=== PATIENT | male | born 1945 | race Caucasian/White ===

== ENCOUNTER 2019-03-03 16:44 | Emergency (ER) | payer MEDICARE, BC ==
[2019-03-03] MEDS ORDERED: cloNIDine 0.1 MG Tab PO ONE (17:20)
[2019-03-03 19:38] VITALS: BP 132/69
--- NOTE | 2019-03-05 19:58 | EDM.PDOC ---
Scribed by Nadine Diana [birth year]191935 for Kelli Stokes NP ED HPI GENERAL MEDICAL PROBLEM - General Chief Complaint: Wound Recheck Stated Complaint: NEEDS TO HAVE HIS NECK LOOKED AT Time Seen by Provider: 03/03/19 17:09 Source of Information: Reports: Patient, RN, RN Notes Reviewed History Limitations: Reports: No Limitations - History of Present Illness INITIAL COMMENTS - FREE TEXT/NARRATIVE: Patient presents to ER with complaint of swelling and warmth at incision site on left side of neck. Patient had endarterectomy yesterday at [facility]. Discharged this a.m. from [facility]. States he feels the lump and area is more warm than normal. Onset: Today Duration: Constant Location: Reports: Other (neck) Quality: Reports: Ache Severity: Mild Improves with: Reports: None Worsens with: Reports: None Associated Symptoms: Reports: No Other Symptoms - Related Data Allergies Allergy/AdvReac Type Severity Reaction Status Date / Time dexamethasone [From TobraDex] Allergy Itching Verified 03/03/19 16:56 hydrocodone Allergy Itching Verified 03/03/19 16:56 Iodinated Contrast- Oral and Allergy RASH/ITCHIN Verified 03/03/19 16:56 IV Dye G tobramycin [From TobraDex] Allergy Itching Verified 03/03/19 16:56 Home Meds: Home Meds Aspirin [Adult Low Dose Aspirin EC] 81 mg PO DAILY 03/23/14 [History] Esomeprazole [NexIUM] 40 mg PO DAILY 03/23/14 [History] Ezetimibe/Simvastatin [Vytorin 10-20 MG] 10 - 20 mg PO ASDIRECTED 03/23/14 [ History] Ibuprofen [Motrin] 600 mg PO Q6H PRN 03/23/14 [History] Multivitamin [Multi Vitamin Daily] 1 tab PO DAILY 03/23/14 [History] [place]-3 Fatty Acids [Fish Oil] 300 mg PO DAILY 03/23/14 [History] amLODIPine Besylate/Benazepril [Amlodipine-Benazepril 10-20 MG] 10 - 20 mg PO DAILY 03/23/14 [History] hydroCHLOROthiazide [Hydrochlorothiazide] 25 mg PO DAILY 03/23/14 [History] metFORMIN [Glucophage] 500 mg PO DAILY 06/30/16 [History] Glimepiride 4 mg PO DAILY 02/24/19 [History] Vitamin E 180 unit PO DAILY 02/24/19 [History] metFORMIN [Glucophage XR] 1,000 mg PO DAILY 02/24/19 [History] Past Medical History HEENT History: Reports: None Cardiovascular History: Reports: High Cholesterol Respiratory History: Reports: None Musculoskeletal History: Reports: None Neurological History: Reports: None Psychiatric History: Reports: None Endocrine/Metabolic History: Reports: Diabetes, Type II Hematologic History: Reports: None Immunologic History: Reports: None Oncologic (Cancer) History: Reports: None Dermatologic History: Reports: None - Infectious Disease History Infectious Disease History: Reports: None - Past Surgical History Head Surgeries/Procedures: Reports: None GI Surgical History: Reports: Cholecystectomy, Hernia, Abdominal Male Surgical History: Reports: Prostatectomy Social & Family History - Family History Family Medical History: Noncontributory - Tobacco Use Smoking Status *Q: Never Smoker Second Hand Smoke Exposure: No - Caffeine Use Caffeine Use: Reports: Coffee - Recreational Drug Use Recreational Drug Use: No - Living Situation & Occupation Living situation: Reports: Occupation: Retired ED ROS GENERAL - Review of Systems Review Of Systems: ROS reveals no pertinent complaints other than HPI. ED EXAM, SKIN/RASH Exam: See Below Exam Limited By: No Limitations General Appearance: Alert, WD/WN, No Apparent Distress Eye Exam: Bilateral Eye: EOMI, Normal Inspection, PERRL Ears: Normal External Exam, Normal Canal, Hearing Grossly Normal, Normal TMs Nose: Normal Inspection, Normal Mucosa, No Blood Throat/Mouth: Normal Inspection, Normal Lips, Normal Teeth, Normal Gums, Normal Oropharynx, Normal Voice, No Airway Compromise Head: Atraumatic, Normocephalic Neck: Other (incision on left side) Respiratory/Chest: No Respiratory Distress, Lungs Clear, Normal Breath Sounds, No Accessory Muscle Use, Chest Non-Tender Cardiovascular: Normal Peripheral Pulses, Regular Rate, Rhythm, No Edema, No Gallop, No JVD, No Murmur, No Rub GI/Abdominal: Normal Bowel Sounds, Soft, Non-Tender, No Organomegaly, No Distention, No Abnormal Bruit, No Mass (Male) Exam: Deferred Rectal (Males) Exam: Deferred Back Exam: Normal Inspection, Full Range of Motion, NT Extremities: Normal Inspection, Normal Range of Motion, Non-Tender, No Pedal Edema, Normal Capillary Refill Neurological: Alert, Oriented, CN II-XII Intact, Normal Cognition, Normal Gait, Normal Reflexes, No Motor/Sensory Deficits Psychiatric: Normal Affect, Normal Mood Skin: Other (incision on left side of neck) Lymphatic: No Adenopathy Course - Vital Signs Last Recorded V/S: Last Vital Signs Temp 97.3 F 03/03/19 16:59 Pulse 66 03/03/19 19:30 Resp 18 03/03/19 19:30 BP 132/69 03/03/19 19:30 Pulse Ox 95 03/03/19 19:30 - Orders/Labs/Meds Meds: Medications Discontinued Medications Generic Name Dose Route Start Last Admin Trade Name Freq PRN Reason Stop Dose Admin Clonidine HCl 0.1 mg 03/03/19 17:20 03/03/19 17:28 Catapres PO 03/03/19 17:21 0.1 mg ONETIME ONE Administration - Re-Assessments/Exams Free Text/Narrative Re-Assessment/Exam: Discussed patient case with Dr. Casanova who states he would not recommend abx at this time. He states he would like the patient's blood pressure under 140 systolically before going home, or observation admission may be necessary to get blood pressure under control. If discharged, Dr. Casanova would like the patient to call his office tomorrow to check in. Departure - Departure Time of Disposition: 19:36 Disposition: Home, Self-Care 01 Condition: Fair Clinical Impression: Hematoma Hypertension Qualifiers: Hypertension type: unspecified Qualified Code(s): I10 - Essential (primary) hypertension - Discharge Information *PRESCRIPTION DRUG MONITORING PROGRAM REVIEWED*: No *COPY OF PRESCRIPTION DRUG MONITORING REPORT IN PATIENT TYREE: No Instructions: Wound Infection, [id number], Managing Your Hypertension Referrals: Fide Delgado MD [Primary Care Provider] - Forms: ED Department Discharge Additional Instructions: Monitor your blood pressure Call Dr. Casanova's office tomorrow morning to check in Return to the ER with any further problems I have read and agree with the documentation that has been completed regarding this visit. By signing this record, I attest that the documentation was completed in my physical presence and is an accurate record of the encounter.
== END 2019-03-03 20:15 | disposition home or self-care (01) ==
LOC: DL.ED 16:44
DX: I97.621 Postprocedural hematoma of a circulatory system organ or structure following other procedure (principal); I10 Essential (primary) hypertension; E78.00 Pure hypercholesterolemia, unspecified; E11.9 Type 2 diabetes mellitus without complications; Z79.84 Long term (current) use of oral hypoglycemic drugs; Z79.899 Other long term (current) drug therapy; Z88.8 Allergy status to other drugs, medicaments and biological substances
CPT/HCPCS: 99283; A9270

== ENCOUNTER 2019-06-10 08:46 | Day surgery (SDC) | payer MEDICARE, BC ==
[2019-06-10] MEDS ORDERED: Sodium Chloride 0.9% 10 ML Syringe IV ONE (08:47)
[2019-06-10] MEDS ORDERED: Midazolam 1 MG/ML 2 ML SDV IV ONE (08:47)
[2019-06-10] MEDS ORDERED: Dexamethasone 4 MG/ML SDV IV ONE (08:47)
[2019-06-10] MEDS ORDERED: Phenylephrine 10% Ophth Soln 5 ML Bot EYERT ONE (09:00)
[2019-06-10] MEDS ORDERED: Povidone-Iodine 5% Sterile Ophth Soln 30 ML Bottle EYERT ONE ×2 (09:00→10:09)
[2019-06-10] MEDS ORDERED: Phenylephrine 10% Ophth Soln 5 ML Bot EYERT PRN (09:00)
[2019-06-10] MEDS ORDERED: Ondansetron 4 MG/2 ML SDV IVPUSH PRN (09:00)
[2019-06-10] MEDS ORDERED: Proparacaine 0.5% Ophth Soln 15 ML Bottle EYERT ONE (09:00)
[2019-06-10] MEDS ORDERED: Timolol Maleate 0.5% Ophth Soln 5 ML Bottle EYERT ONE (09:00)
[2019-06-10] MEDS ORDERED: Sodium Chloride 0.9% 10 ML Syringe FLUSH PRN (09:00)
[2019-06-10] MEDS ORDERED: Moxifloxacin 0.5% Ophth Soln 3 ML Bottle EYERT ONE (09:00)
[2019-06-10] MEDS ORDERED: Acetaminophen 325 MG Tab PO PRN (09:00)
[2019-06-10] MEDS ORDERED: Cataract Ophth Solution EYERT ONE (09:00)
[2019-06-10] MEDS ORDERED: Lidocaine 1% 30 ML SDV ONE (10:09)
[2019-06-10] MEDS ORDERED: Diclofenac Sodium 0.1% Ophth Soln 5 ML Bottle EYERT ONE (10:10)
[2019-06-10] MEDS ORDERED: Tetracaine HCl/PF 0.5% 4 ML Bottle EYERT ONE (10:10)
[2019-06-10] MEDS ORDERED: Apraclonidine 0.5% Ophth Soln 5 ML Bot EYERT ONE (10:10)
[2019-06-10] MEDS ORDERED: Dexamethasone/Neomycin/Polymyxin B Ophth Oint 3.5 GM Tube EYERT ONE (10:11)
[2019-06-10] MEDS ORDERED: Balanced Salt Solution Ophth Irrig 500 ML Bottle IOCULAR ONE (10:11)
[2019-06-10] MEDS ORDERED: Chondroitin Sulfate/Hyaluronate Sodium Ophth Inj 0.75 ML Syringe EYERT ONE (10:12)
[2019-06-10] MEDS ORDERED: Vancomycin 500 MG SDV EYERT ONE (10:12)
[2019-06-10 11:05] VITALS: BP 122/77
--- NOTE | 2019-06-10 16:37 | OR ---
DATE: 06/10/2019 PREOPERATIVE DIAGNOSIS: Visually significant mixed cataract, right eye. POSTOPERATIVE DIAGNOSIS: Visually significant mixed cataract, right eye. PROCEDURE: Extracapsular cataract extraction with intraocular lens implant, right eye. ANESTHESIA: Topical/local MAC. COMPLICATIONS: None. INDICATION: Mr. Tidwell was seen in the clinic. He has complained of a progressive decrease in vision. His examination revealed visually significant cataract. He has difficulty driving at night. Also, he has a hard time with focusing and near tasks. I explained options, offered cataract surgery, and I explained risks preoperatively including, but not limited to infection, retinal detachment, loss of vision, and need for additional surgery amongst others. We discussed implant options. He has requested a monofocal implant. He understands that he may need glasses following surgery for some activities. OPERATIVE DESCRIPTION: After informed consent was obtained and the risks, benefits, and alternatives were explained, the patient was brought to the operative suite and topical anesthesia was administered. The patient was then prepped and draped in the sterile fashion and attention was placed on the right eye. A sterile lid speculum was placed into the right eye to allow operative exposure. A full-thickness paracentesis was made in the temporal portion of the operative eye. Preservative-free lidocaine 0.1 mL was injected into the anterior chamber followed by viscoelastic. A full-thickness corneal incision was then made into the anterior chamber. A bent needle cystotome was used to create a small rosario in the anterior capsule. The capsulorrhexis forceps was then used to create a 360-degree curvilinear capsulorrhexis. The nucleus was then removed using a phacoemulsification handpiece and the remaining cortical material was then removed with irrigation and aspiration handpiece. Following removal of the cortical material, the capsular bag was then inspected and noted to be free of any holes or tears. Viscoelastic was then injected into the capsular bag and the intraocular lens was inserted into the capsular bag. The viscoelastic material was then removed from both the anterior and posterior chambers and from behind the IOL. The lens and capsular bag were then reinspected. The IOL was well centered and the capsular bag intact. The wound and paracentesis sites were inspected and hydrated with balanced saline solution. Both were found to be self-sealing. The intraocular pressure was assessed digitally and found to be within normal range. A good red reflex was noted at the completion of the procedure. No complications occurred during the operation. At the completion of the procedure, Maxitrol, Voltaren, and Iopidine drops were placed into the operative eye. A sterile eye shield was placed over the operative eye and the patient was transported to the postoperative recovery area having tolerated the procedure well. Postoperative instructions were given along with a postoperative appointment. The patient was advised to call with any questions or concerns. [facility] /[id number]
== END 2019-06-10 11:04 | disposition home or self-care (01) ==
LOC: DL.SDS 08:46
PROVIDERS: ATTEND Ophthalmology
DX: E11.36 Type 2 diabetes mellitus with diabetic cataract (principal); E78.5 Hyperlipidemia, unspecified; K21.9 Gastro-esophageal reflux disease without esophagitis; I10 Essential (primary) hypertension; I25.10 Atherosclerotic heart disease of native coronary artery without angina pectoris; E66.9 Obesity, unspecified; Z87.891 Personal history of nicotine dependence; Z68.36 Body mass index [BMI] 36.0-36.9, adult; Z91.041 Radiographic dye allergy status; Z88.1 Allergy status to other antibiotic agents; Z88.8 Allergy status to other drugs, medicaments and biological substances; Z79.84 Long term (current) use of oral hypoglycemic drugs; Z79.82 Long term (current) use of aspirin
CPT/HCPCS: 66984; A9270; J1100; J2001; J2250; J3370; V2632

== ENCOUNTER 2020-07-04 21:33 | Emergency (ER) | payer MEDICARE, BC ==
[2020-07-04 21:40] VITALS: BP 167/87; PULSE 72
--- NOTE | 2020-07-04 23:15 | EDM.PDOC ---
ED HPI GENERAL MEDICAL PROBLEM - General Chief Complaint: ENT Problem Stated Complaint: EAR WILL NOT STOP BLEEDING Time Seen by Provider: 07/04/20 21:40 Source of Information: Reports: Patient History Limitations: Reports: No Limitations - History of Present Illness INITIAL COMMENTS - FREE TEXT/NARRATIVE: ED with c/o bleeding to back of right ear. Lesion removed 10 days ago. Healing with out complication until tonight. Noted sitting in chair and area started to bleed. Has not noted any increased pain swelling or redness to area. no scheduled follow up. Was told 8-12 weeks before complete healing. Dressing to ear only for first couple of days. - Related Data Allergies Allergy/AdvReac Type Severity Reaction Status Date / Time Iodinated Contrast Media Allergy RASH/ITCHIN Verified 06/10/19 08:59 [Iodinated Contrast- Oral G and IV Dye] Home Meds: Home Meds Aspirin [Adult Low Dose Aspirin EC] 81 mg PO DAILY 03/23/14 [History] Esomeprazole [NexIUM] 40 mg PO DAILY 03/23/14 [History] Ezetimibe/Simvastatin [Vytorin 10-20 MG] 1 tab PO ASDIRECTED 03/23/14 [History] Ibuprofen [Motrin] 600 mg PO Q6H PRN 03/23/14 [History] Multivitamin [Multi Vitamin Daily] 1 tab PO DAILY 03/23/14 [History] [place]-3 Fatty Acids [Fish Oil] 300 mg PO DAILY 03/23/14 [History] amLODIPine Besylate/Benazepril [Amlodipine-Benazepril 10-20 MG] 10 mg PO DAILY 03/23/14 [History] hydroCHLOROthiazide [Hydrochlorothiazide] 25 mg PO DAILY 03/23/14 [History] metFORMIN [Glucophage] 500 mg PO DAILY 06/30/16 [History] Glimepiride 4 mg PO DAILY 02/24/19 [History] metFORMIN [Glucophage XR] 1,000 mg PO BEDTIME 02/24/19 [History] Cholecalciferol (Vitamin D3) [Vitamin D3] 1,000 units PO DAILY 05/29/19 [History] Cyanocobalamin (Vitamin B-12) [B-12] 1,000 mcg PO DAILY 05/29/19 [History] Past Medical History - Past Health History Medical/Surgical History: Denies Medical/Surgical History HEENT History: Reports: Cataract Cardiovascular History: Reports: Angina, CAD, High Cholesterol, Hypertension Respiratory History: Reports: None Gastrointestinal History: Reports: Diverticulosis, GERD, Hemorrhoids, Other (See Below) Other Gastrointestinal History: HX OF LIVER ENZYMES. 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 INCISIONAL HERNIA REPAIR - DAVINCI ASSISTED REPAIR Male Surgical History: Reports: Prostatectomy, Other (See Below) Other Male Surgeries/Procedures: PROSTRATE ULTRASOUND/BIOPSY Oncologic Surgical History: Reports: Biopsy of Breast Social & Family History - Family History Family Medical History: Noncontributory - Tobacco Use Smoking Status *Q: Never Smoker Second Hand Smoke Exposure: No - Caffeine Use Caffeine Use: Reports: Coffee Other Caffeine Use: 3 cups daily - Recreational Drug Use Recreational Drug Use: No - Living Situation & Occupation Living situation: Reports: Occupation: Retired ED ROS ENT - Review of Systems Review Of Systems: Comprehensive ROS is negative, except as noted in HPI. ED EXAM, ENT - Physical Exam Exam: See Below Exam Limited By: No Limitations General Appearance: Alert, No Apparent Distress Eye Exam: Bilateral Eye: EOMI Ears: Hearing Grossly Normal, Other ([id number] lesion posterior right mid ear. No redness or swelling no sign of infection. No active bleeding. ) Nose: Normal Inspection Head: Atraumatic, Normocephalic Respiratory/Chest: No Respiratory Distress Neurological: Alert, Oriented, Normal Cognition Psychiatric: Normal Affect, Normal Mood Skin: Warm, Dry Course - Vital Signs Last Recorded V/S: Last Vital Signs Temp 97.1 F 07/04/20 21:36 Pulse 72 07/04/20 21:36 Resp 18 07/04/20 21:36 BP 167/87 H 07/04/20 21:36 Pulse Ox 95 07/04/20 21:36 Departure - Departure Time of Disposition: 22:57 Disposition: Home, Self-Care 01 Condition: Good Clinical Impression: Skin lesion - Discharge Information *PRESCRIPTION DRUG MONITORING PROGRAM REVIEWED*: No *COPY OF PRESCRIPTION DRUG MONITORING REPORT IN PATIENT TYREE: No Instructions: Excision of Skin Lesions Referrals: Fide Delgado MD [Primary Care Provider] - Forms: ED Department Discharge Additional Instructions: may remove dressing carefully tomorrow cover as needed clinic follow up this week with organization development consultant or Provider that removed lesion monitor for increased redness or swelling or area around lesion Sepsis Event Note (ED) - Evaluation Sepsis Screening Result: No Definite Risk - Focused Exam Vital Signs: Vital Signs Temp Pulse Resp BP Pulse Ox 07/04/20 21:36 97.1 F 72 18 167/87 H 95
== END 2020-07-04 23:20 | disposition home or self-care (01) ==
LOC: DL.ED 21:33
DX: L98.9 Disorder of the skin and subcutaneous tissue, unspecified (principal); E11.9 Type 2 diabetes mellitus without complications; K21.9 Gastro-esophageal reflux disease without esophagitis; I25.10 Atherosclerotic heart disease of native coronary artery without angina pectoris; E78.00 Pure hypercholesterolemia, unspecified; I10 Essential (primary) hypertension; E66.9 Obesity, unspecified; Z91.041 Radiographic dye allergy status; Z79.82 Long term (current) use of aspirin; Z79.84 Long term (current) use of oral hypoglycemic drugs; Z79.899 Other long term (current) drug therapy; Z68.26 Body mass index [BMI] 26.0-26.9, adult
CPT/HCPCS: 99282; 99283

== ENCOUNTER 2021-03-18 02:01 | Emergency (ER) | payer MEDICARE, BC ==
[2021-03-18 03:15] VITALS: BP 162/88; PULSE 94
[2021-03-18] MEDS ORDERED: HYDROmorphone 1 MG/ML Syringe IVPUSH ONE (03:27)
--- NOTE | 2021-03-18 05:19 | EDM.PDOC ---
ED HPI GENERAL MEDICAL PROBLEM - General Chief Complaint: Upper Extremity Injury/Pain Stated Complaint: LEFT SIDE OF RIGS HURTING, LEFT WRIST Time Seen by Provider: 03/18/21 03:50 Source of Information: Reports: Patient, Family (), RN, RN Notes Reviewed History Limitations: Reports: No Limitations - History of Present Illness INITIAL COMMENTS - FREE TEXT/NARRATIVE: Genaro is a 75 y/o male who presents to the ED via personal vehicle with for complaints of left anterolateral rib pain and left wrist pain. The patient reports he fell onto his left wrist and side two days ago while attempting to get into the tail-end of a parked truck. He notes he did strike his head during the incident but denies loss of consciousness and does not take a daily blood thinner. The patient reports he has been taking ibuprofen for the pain to his left thorax, which has offered him [id number] alleviation of symptoms. He denies vision changes, headache, palpitations, or abdominal pain. He denies history of injury to the affected areas. Left Middle Chest Pain Score (Numeric/FACES): 10 - Related Data Allergies Allergy/AdvReac Type Severity Reaction Status Date / Time Iodinated Contrast Media Allergy RASH/ITCHIN Verified 03/18/21 03:19 [Iodinated Contrast- Oral G and IV Dye] Home Meds: Home Meds Aspirin [Adult Low Dose Aspirin EC] 81 mg PO DAILY 03/23/14 [History] Esomeprazole [NexIUM] 40 mg PO DAILY 03/23/14 [History] Ezetimibe/Simvastatin [Vytorin 10-20 MG] 1 tab PO ASDIRECTED 03/23/14 [History] Ibuprofen [Motrin] 600 mg PO Q6H PRN 03/23/14 [History] Multivitamin [Multi Vitamin Daily] 1 tab PO DAILY 03/23/14 [History] [place]-3 Fatty Acids [Fish Oil] 300 mg PO DAILY 03/23/14 [History] amLODIPine Besylate/Benazepril [Amlodipine-Benazepril 10-20 MG] 10 mg PO DAILY 03/23/14 [History] hydroCHLOROthiazide [Hydrochlorothiazide] 25 mg PO DAILY 03/23/14 [History] metFORMIN [Glucophage] 500 mg PO DAILY 06/30/16 [History] Glimepiride 4 mg PO DAILY 02/24/19 [History] metFORMIN [Glucophage XR] 1,000 mg PO BEDTIME 02/24/19 [History] Cholecalciferol (Vitamin D3) [Vitamin D3] 1,000 units PO DAILY 05/29/19 [History] Cyanocobalamin (Vitamin B-12) [B-12] 1,000 mcg PO DAILY 05/29/19 [History] Past Medical History - Past Health History Medical/Surgical History: Denies Medical/Surgical History HEENT History: Reports: Cataract Cardiovascular History: Reports: Angina, CAD, High Cholesterol, Hypertension Respiratory History: Reports: None Gastrointestinal History: Reports: Diverticulosis, GERD, Hemorrhoids, Other (See Below) Other Gastrointestinal History: HX OF LIVER ENZYMES. 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 INCISIONAL HERNIA REPAIR - DAVINCI ASSISTED REPAIR Male Surgical History: Reports: Prostatectomy, Other (See Below) Other Male Surgeries/Procedures: PROSTRATE ULTRASOUND/BIOPSY Oncologic Surgical History: Reports: Biopsy of Breast Social & Family History - Family History Family Medical History: No Pertinent Family History - Tobacco Use Tobacco Use Status *Q: Never Tobacco User - Caffeine Use Caffeine Use: Reports: Coffee Other Caffeine Use: 3 cups daily - Recreational Drug Use Recreational Drug Use: No - Living Situation & Occupation Living situation: Reports: Occupation: Retired Review of Systems - Review of Systems Review Of Systems: Comprehensive ROS is negative, except as noted in HPI. ED EXAM, GENERAL - Physical Exam Exam: See Below Exam Limited By: No Limitations General Appearance: Alert, No Apparent Distress Eye Exam: Left Eye: Periorbital Changes (Superficial abrasion to lateral aspect of upper lid), Bilateral Eye: EOMI, Normal Inspection, PERRL (3mm) Ears: Normal External Exam, Normal Canal, Hearing Grossly Normal, Normal TMs Ear Exam: Bilateral Ear: Auricle Normal, Canal Normal, TM normal Throat/Mouth: Normal Inspection, Normal Oropharynx, Normal Voice, No Airway Compromise Head: Normocephalic, Other (Superficial abrasion to left lateral aspect of upper lid) Neck: Normal Inspection, Supple, Non-Tender, Full Range of Motion Respiratory/Chest: Lungs Clear, Splinting. No: Chest Non-Tender (Pain to left thorax with inspiration), Crackles, Rales, Rhonchi, Wheezing, Stridor, Pleural Rub Cardiovascular: Normal Peripheral Pulses, Regular Rate, Rhythm, No Edema, No Gallop, No JVD, No Murmur, No Rub Peripheral Pulses: 2+: Radial (L), Radial (R), Dorsalis Pedis (L), Dorsalis Pedis (R) GI/Abdominal: Normal Bowel Sounds, Soft, Non-Tender, No Distention, No Abnormal Bruit, No Mass, Pelvis Stable (Male) Exam: Deferred Rectal (Males) Exam: Deferred Back Exam: Normal Inspection, Full Range of Motion Extremities: Normal Range of Motion (Full movement of left wrist), Normal Capillary Refill, Joint Swelling (To left wrist), Arm Pain (To left wrist). No: Increased Warmth, Mottled, Pallor, Redness Neurological: Alert, Oriented, CN II-XII Intact, Normal Cognition, Normal Gait, No Motor/Sensory Deficits Psychiatric: Normal Affect, Normal Mood Skin Exam: Warm, Dry, Intact, No Rash, Ecchymosis (To left wrist). No: Jaundice, Mottled, Pallor, Petechiae Course - Vital Signs Last Recorded V/S: Last Vital Signs Temp 97.3 F 03/18/21 03:13 Pulse 94 03/18/21 03:13 Resp 20 03/18/21 03:13 BP 162/88 H 03/18/21 03:13 Pulse Ox 96 03/18/21 03:13 - Orders/Labs/Meds Meds: Medications Discontinued Medications Generic Name Dose Route Start Last Admin Trade Name Nasreen PRN Reason Stop Dose Admin Hydromorphone HCl 1 mg 03/18/21 03:27 03/18/21 03:36 Hydromorphone 1 Mg/Ml Syringe IVPUSH 03/18/21 03:28 1 mg ONETIME ONE Administration - Radiology Interpretation Free Text/Narrative:: [facility] Final Radiology Report Call: [phone] assistance Online chat: [email or web address] Name: GENARO CABA Age: 75Years M Date: 03/18/2021 SSN: -- : 1945 Study: CR WRIST COMP MIN 3V LT Requesting Physician: Lazara Toribio Images: 3 Addl Studies: Provided Clinical History: fall Contrast: Contrast Medium: Contrast Amount: Contrast Method: CONFIDENTIALITY STATEMENT This report is intended only for use by the referring physician, and only in accordance with law. If you received this in error, call [phone]. Page 1 of 1 PROCEDURE INFORMATION: Exam: XR Left Wrist Exam date and time: 03/18/2021 4:13 AM Age: 75 years old Clinical indication: Other: Pain; Additional info: Fall TECHNIQUE: Imaging protocol: XR Left wrist. Views: 3 or more views. COMPARISON: No relevant prior studies available. FINDINGS: Bones/joints: Bone mineralization is normal. Mild negative ulnar variance is noted. Widening at the scapholunate interval is compatible with scapholunate ligament tear. Degenerative osteophytosis of the joints of the 1st ray is noted. Soft tissues: Normal. IMPRESSION: 1. No acute osseous abnormalities. 2. Scapholunate widening, compatible with scapholunate tear. This is potentially an acute soft tissue injury. Thank you for allowing us to participate in the care of your patient. Dictated and Authenticated by: Jose Rivera MD 03/18/2021 5:52 AM Central Time ([place] & [place]) [facility] Final Radiology Report Call: [phone] assistance Online chat: [email or web address] Name: GENARO CABA Age: 75Years M Date: 03/18/2021 SSN: -- : [id number] Study: CR RIBS 2V WO CHEST LT Requesting Physician: Lazara Toribio Images: 3 Addl Studies: Provided Clinical History: fall Contrast: Contrast Medium: Contrast Amount: Contrast Method: CONFIDENTIALITY STATEMENT This report is intended only for use by the referring physician, and only in accordance with law. If you received this in error, call [phone]. Page 1 of 1 PROCEDURE INFORMATION: Exam: XR Left Ribs Exam date and time: 03/18/2021 4:05 AM Age: 75 years old Clinical indication: Other: Lateral pain; Additional info: Fall TECHNIQUE: Imaging protocol: XR Left ribs. Views: 2 views. COMPARISON: No relevant prior studies available. FINDINGS: Bones/joints: Contour abnormality of the lateral left 7th and 8th ribs could represent nondisplaced fracture. Small a minimally displaced fracture of the lateral left 9th rib. Nondisplaced fracture of the lateral left 11th rib. Lungs: The lungs are hypoinflated with bibasilar atelectasis. No consolidation. Pleural space: No pleural effusion or pneumothorax. Heart/Mediastinum: Cardiac silhouette size is normal. Soft tissues: Normal. IMPRESSION: 1. Left lateral rib fractures, as described. 2. Hypoinflation with bibasilar atelectasis. Thank you for allowing us to participate in the care of your patient. Dictated and Authenticated by: Jose Rivera MD 03/18/2021 5:56 AM Central Time ([place] & [place]) - Re-Assessments/Exams Free Text/Narrative Re-Assessment/Exam: 03/18/21 Will obtain X-ray of chest and left wrist. Dilaudid 1mg administered for rib pain. Findings of examination and imaging reviewed with patient and . Will treat rib fractures with IS and pain management. Splint applied to left wrist for potential scaphoid ligament tear. Patient instructed to follow up with orthopedic surgeon for reevaluation of wrist. Red flag signs and symptoms which would warrant reevaluation reviewed. Patient verbalized understanding and agreement with the plan of care. Departure - Departure Time of Disposition: 06:14 Disposition: Home, Self-Care 01 Condition: Good Clinical Impression: Left rib fracture Qualifiers: Encounter type: initial encounter Rib fracture type: multiple ribs Fracture type: closed Qualified Code(s): S22.42XA - Multiple fractures of ribs, left side, initial encounter for closed fracture Scapho-lunate dissociation Qualifiers: Laterality: left Qualified Code(s): M25.332 - Other instability, left wrist Fall from stationary vehicle Qualifiers: Encounter type: initial encounter Qualified Code(s): W17.89XA - Other fall from one level to another, initial encounter - Discharge Information *PRESCRIPTION DRUG MONITORING PROGRAM REVIEWED*: Not Applicable *COPY OF PRESCRIPTION DRUG MONITORING REPORT IN PATIENT TYREE: Not Applicable Instructions: Pain Medicine Instructions, [id number], Rib Fracture, [id number] Referrals: Fide Delgado MD [Primary Care Provider] - Forms: ED Department Discharge Additional Instructions: Rx: Percocet 1.) Follow up with hand surgeon regarding today's visit as your soft-tissue injury may require surgical repair. 2.) You may take ibuprofen (Advil/Motrin) 400mg every six hours, as pain and swelling persists. You may also take acetaminophen (Tylenol) 650mg every six hours, as pain persists. You may stagger these medications so you are receiving a dose every three hours. 3.) Use incentive spirometer 10 times, every hour while awake to keep lungs open and fully expanded. 4.) Follow up with primary care provider, or return to the emergency department, with any shortness of breath, fever, shaking chills, or worsening of symptoms despite medications. Sepsis Event Note (ED) - Evaluation Sepsis Screening Result: No Definite Risk
--- NOTE | 2021-03-18 05:53 | CR ---
PROCEDURE INFORMATION: Exam: XR Left Wrist Exam date and time: 03/18/2021 4:13 AM Age: 75 years old Clinical indication: Other: Pain; Additional info: Fall TECHNIQUE: Imaging protocol: XR Left wrist. Views: 3 or more views. COMPARISON: No relevant prior studies available. FINDINGS: Bones/joints: Bone mineralization is normal. Mild negative ulnar variance is noted. Widening at the scapholunate interval is compatible with scapholunate ligament tear. Degenerative osteophytosis of the joints of the 1st ray is noted. Soft tissues: Normal. IMPRESSION: 1. No acute osseous abnormalities. 2. Scapholunate widening, compatible with scapholunate tear. This is potentially an acute soft tissue injury.
--- NOTE | 2021-03-18 05:57 | CR ---
PROCEDURE INFORMATION: Exam: XR Left Ribs Exam date and time: 03/18/2021 4:05 AM Age: 75 years old Clinical indication: Other: Lateral pain; Additional info: Fall TECHNIQUE: Imaging protocol: XR Left ribs. Views: 2 views. COMPARISON: No relevant prior studies available. FINDINGS: Bones/joints: Contour abnormality of the lateral left 7th and 8th ribs could represent nondisplaced fracture. Small a minimally displaced fracture of the lateral left 9th rib. Nondisplaced fracture of the lateral left 11th rib. Lungs: The lungs are hypoinflated with bibasilar atelectasis. No consolidation. Pleural space: No pleural effusion or pneumothorax. Heart/Mediastinum: Cardiac silhouette size is normal. Soft tissues: Normal. IMPRESSION: 1. Left lateral rib fractures, as described. 2. Hypoinflation with bibasilar atelectasis.
== END 2021-03-18 06:46 | disposition home or self-care (01) ==
LOC: DL.ED 02:01
DX: S22.42XA Multiple fractures of ribs, left side, initial encounter for closed fracture (principal); S60.212A Contusion of left wrist, initial encounter; S00.212A Abrasion of left eyelid and periocular area, initial encounter; M25.332 Other instability, left wrist; I25.10 Atherosclerotic heart disease of native coronary artery without angina pectoris; E78.00 Pure hypercholesterolemia, unspecified; I10 Essential (primary) hypertension; E11.9 Type 2 diabetes mellitus without complications; E66.9 Obesity, unspecified; Z68.30 Body mass index [BMI] 30.0-30.9, adult; Z79.82 Long term (current) use of aspirin; Z79.899 Other long term (current) drug therapy; Z79.84 Long term (current) use of oral hypoglycemic drugs; Z91.041 Radiographic dye allergy status; W17.89XA Other fall from one level to another, initial encounter; W18.09XA Striking against other object with subsequent fall, initial encounter
CPT/HCPCS: 29125; 71100; 73110; 96374; 99283; 99284; J1170